=== PATIENT | male | born 1995 | race Two or more races ===

== ENCOUNTER 2022-12-21 19:09 | Emergency (ER) | payer OTHER ==
[2022-12-21] MEDS ORDERED: Acetaminophen 500 MG Tab PO ONE (19:42)
[2022-12-21] MEDS ORDERED: Diazepam 2 MG Tab PO ONE (19:42)
[2022-12-21] MEDS ORDERED: Sodium Chloride 0.9% 10 ML Syringe FLUSH PRN (19:42)
[2022-12-21] MEDS ORDERED: Ketorolac 30 MG/ML SDV IVPUSH ONE (19:42)
[2022-12-21] MEDS ORDERED: Sodium Chloride 0.9% 2.5 ML Syringe FLUSH PRN (19:42)
[2022-12-21 21:40] LABS: BASOPHILS PERCENT AUTO 0.2 % (0.0-1.5); EOSINOPHILS PERCENT AUTO 0.2 % (0.0-7.0); HEMATOCRIT 44.6 % (38.0-50.0); HEMOGLOBIN 15.5 g/dL (13.0-17.0); LYMPHOCYTES ABSOLUTE AUTO 2.2 K/uL (0.6-2.4); MEAN CORPUSCULAR HEMOGLOBIN 30.9 pg (27.0-32.0); MEAN CORPUSCULAR HGB CONC 34.8 g/dL (31.0-37.0); MONOCYTES ABSOLUTE AUTO 0.8 K/uL (0.0-0.8); MONOCYTES PERCENT AUTO 8.4 % (0.0-15.0); NEUTROPHILS ABSOLUTE AUTO 6.1 K/uL (1.4-5.7); NEUTROPHILS PERCENT AUTO 67.2 % (48.0-80.0); NRBC ABSOLUTE 0 K/uL; PLATELET COUNT,PLT 187 K/uL (150-400); RED BLOOD CELL COUNT 5.01 M/uL (4.50-5.90); WHITE BLOOD CELL COUNT,WBC 9.04 K/uL (4.0-11.0)
[2022-12-21 21:58] LABS: BLOOD UREA NITROGEN,BUN 21 mg/dL (7.0-18.0); CALCIUM 9.2 mg/dL (8.5-10.1); CARBON DIOXIDE,CO2 28.7 mmol/L (21.0-32.0); CHLORIDE,CL 100 mmol/L (98-107); GLUCOSE RANDOM 96 mg/dL (74-106); POTASSIUM,K 4.3 mmol/L (3.5-5.1); SODIUM,NA 137 mmol/L (136-148)
[2022-12-21 22:05] LABS: ESTIMATED GFR 106 mL/min (>60)
[2022-12-21] MEDS ORDERED: Iopamidol 755 MG/ML 500 ML Multipack Bottle IVPUSH ONE (22:23)
== END 2022-12-21 23:56 | disposition home or self-care (01) ==
LOC: MW.ED 19:09
DX: S32.029A Unspecified fracture of second lumbar vertebra, initial encounter for closed fracture (principal); S32.039A Unspecified fracture of third lumbar vertebra, initial encounter for closed fracture; W18.30XA Fall on same level, unspecified, initial encounter
CPT/HCPCS: 36415; 72128; 72131; 74177; 80048; 85025; 96374; 99284; A9270; J1885; J3490; Q9967